=== PATIENT | female | born 1970 | race Caucasian/White ===

== ENCOUNTER 2017-08-01 13:58 | Observation (INO) | payer SELFPAY ==
[~2017-08-01] VITALS: Ht 154.9 cm; Wt 64.9 kg
[2017-08-01 14:56] LABS: BASOPHILS % 0.9 % (0.0-1.0); EOSINOPHILS # (AUTO) 0.2 (0.0-0.4); EOSINOPHILS % 3.2 % (0.0-6.0); HEMATOCRIT 23.6 % (34.2-44.1); LYMPHOCYTES # (AUTO) 1.2 (1.0-3.2); LYMPHOCYTES % 25.3 % (18.0-39.1); MEAN CORPUSCULAR HEMOGLOBIN 19.5 pg (28-32); MEAN CORPUSCULAR HGB CONC 28.8 g/dL (31-35); MEAN CORPUSCULAR VOLUME 67.6 fL (81-99); MONOCYTES # (AUTO) 0.5 (0.2-0.8); MONOCYTES % 10.6 % (4.4-11.3); NEUTROPHILS # (AUTO) 2.8 (2.1-6.9); NEUTROPHILS % 59.8 % (38.7-80.0); PLATELET COUNT 294 x10e3/uL (140-360); RED BLOOD COUNT 3.49 x10e6/uL (3.6-5.1); RED CELL DISTRIBUTION WIDTH 18.7 % (11.7-14.4)
[2017-08-01 15:01] LABS: HEMOGLOBIN 6.8 g/dL (12.0-16.0)
--- NOTE | 2017-08-01 15:06 | Diagnostic Imaging Report ---
History:Disorientation Comparison studies: None Technique: Axial images were obtained from the skull base to the vertex. Coronal and sagittal reconstructions obtained from the axial data. Findings: Scalp/skull: No abnormalities. No fractures, blastic or lytic lesions. Extra-axial spaces: No masses. No fluid collections. Brain sulci: Appropriate for age. Ventricles: Normal in size and configuration. No hydrocephalus. Parenchyma: No abnormal densities. No masses, hemorrhage, acute or chronic cortical vascular insults. Sellar/suprasellar region: No abnormalities Craniocervical junction: Patent foramen magnum. No Chiari one malformation. IMPRESSION: No abnormalities . Signed by: DR Pravin Posey M.D. on 08/01/2017 3:02 PM
[2017-08-01] MEDS ORDERED: SODIUM CHLORIDE 0.9% 250ML 250 ML IV ONE (15:15)
[2017-08-01 15:18] LABS: ALANINE AMINOTRANSFERASE 21 IU/L (0-55); ALBUMIN 3.7 g/dL (3.5-5.0); ALBUMIN/GLOBULIN RATIO 1.1 (0.8-2.0); ALKALINE PHOSPHATASE 62 IU/L (40-150); ANION GAP 11.4 mmol/L (8-16); BLOOD UREA NITROGEN 10 mg/dL (7-26); BUN/CREATININE RATIO 13 (6-25); CARBON DIOXIDE 25 mmol/L (22-29); CHLORIDE 108 mmol/L (98-107); CREATINE KINASE 536 IU/L (29-168); CREATININE, SERUM 0.76 mg/dL (0.57-1.11); EST GLOMERULAR FILTRATION RATE > 60 ML/MIN (60-); GLUCOSE 99 mg/dL (74-118); POTASSIUM 3.4 mmol/L (3.5-5.1); SODIUM 141 mmol/L (136-145)
[2017-08-01 15:37] LABS: THYROID STIMULATING HORMONE 0.615 uIU/mL (0.350-4.940)
[2017-08-01 15:44] LABS: ACETAMINOPHEN < 3 ug/mL (10-30); SALICYLATE < 5.0 mg/dL (0-30)
[2017-08-01] MEDS ORDERED: SODIUM CHLORIDE FLUSH 10 ML SYR INJ PRN (16:00)
--- OUTSIDE RECORDS SUMMARY | 2017-08-01 16:29 | XMS REPORT ---
Author Author [facility] Address Unknown Phone Unavailable Care Team Providers Care Litigation Assistant Name Role Phone KAMALA HODGES Unavailable Unavailable Problems This patient has no known problems. Allergies, Adverse Reactions, Alerts This patient has no known allergies or adverse reactions. Medications This patient has no known medications. Results Test Description Test Time Test Comments Text Results Atomic Results Result Comments CT BRAIN WO [place] [address] Patient Name: MIAN ROMO MR #: [id number] : 1970 Age/Sex: 46/F Req #: [id number] Adm Physician: Ordered by: GEORGES CABALLERO [employer] Report #: [id number] Location: ER Room/Bed: Procedure: [id number] CT/CT BRAIN WO Exam Date: 08/01/17 Exam Time: 1430 REPORT STATUS: Signed History:Disorientation Comparison studies: None Technique: Axial images were obtained from the skull base to the vertex. Coronal and sagittal reconstructions obtained from the axial data. Findings: Scalp/skull: No abnormalities. No fractures, blastic or lytic lesions. Extra-axial spaces: No masses. No fluid collections. Brain sulci: Appropriate for age. Ventricles: Normal in size and configuration. No hydrocephalus. Parenchyma: No abnormal densities. No masses, hemorrhage, acute or chronic cortical vascular insults. Sellar/ suprasellar region: No abnormalities Craniocervical junction: Patent foramen magnum. No Chiari one malformation. IMPRESSION: No abnormalities . Signed by: DR Pravin Posey M.D. on 08/01/2017 3:02 PM Dictated By: PRAVIN MACIAS MD 1502 Transcribed By: HERNAN on 08/01/17 1502 COPY TO: GEORGES CABALLERO NP
[2017-08-01 16:51] LABS: BILIRUBIN,URINE NEGATIVE (NEGATIVE); CLARITY,URINE CLEAR (CLEAR); COLOR,URINE YELLOW (YELLOW); KETONES,URINE NEGATIVE (NEGATIVE); LEUKOCYTE ESTERASE ,URINE NEGATIVE (NEGATIVE); NITRITE,URINE NEGATIVE (NEGATIVE); PROTEIN,URINE DIPSTICK NEGATIVE (NEGATIVE); URINE UROBILINOGEN 0.2 mg/dL (0.2 - 1)
[2017-08-01] MEDS ORDERED: PANTOPRAZOLE 40 MG 10ML VIAL IV STA (16:56)
[2017-08-01 17:04] LABS: AMPHETAMINES SCREEN,URINE NEGATIVE (NEGATIVE); BENZODIAZEPINES SCREEN,URINE NEGATIVE (NEGATIVE); PHENCYCLIDINE SCREEN,URINE NEGATIVE (NEGATIVE)
[2017-08-01 17:05] LABS: BACTERIA,URINE RARE /HPF; EPITHELIAL CELLS,URINE RARE /LPF; RBC,URINE 0-5 /HPF (0-5); WBC,URINE (MAN) 0-5 /HPF (0-5)
[2017-08-01 17:06] LABS: PREGNANCY TEST, URINE NEGATIVE (NEGATIVE)
[2017-08-01 17:30] VITALS: BP 135/78
[2017-08-01 17:34] LABS: % IRON SATURATION 3 % (15-50); IRON 17 ug/dL (50-170); TOTAL IRON BINDING CAPACITY 529 ug/dL (261-478); TRANSFERRIN 378 mg/dL (180-382)
[2017-08-01 18:39] VITALS: BP 135/78
[2017-08-01 20:10] VITALS: BP 129/69
[2017-08-01] MEDS ORDERED: SODIUM CHLORIDE 0.9% 250ML 250 ML ONE (23:11)
[2017-08-01] MEDS ORDERED: ACETAMINOPHEN 325 MG TAB PO PRN (23:45)
[2017-08-01] MEDS ORDERED: ACETAMINOPHEN 325 MG TAB PO ONE (23:45)
[2017-08-02] MEDS: LORAZEPAM 0.5 MG TAB PO PRN ×4 (00:13→20:03)
[2017-08-02 05:30] VITALS: BP 150/85
[2017-08-02 07:56] VITALS: BP 147/81
[2017-08-02 10:44] LABS: BASOPHILS % 0.6 % (0.0-1.0); EOSINOPHILS # (AUTO) 0.2 (0.0-0.4); EOSINOPHILS % 4.6 % (0.0-6.0); HEMATOCRIT 30.3 % (34.2-44.1); HEMOGLOBIN 9.1 g/dL (12.0-16.0); LYMPHOCYTES # (AUTO) 1.3 (1.0-3.2); LYMPHOCYTES % 25.5 % (18.0-39.1); MEAN CORPUSCULAR HEMOGLOBIN 21.9 pg (28-32); MEAN CORPUSCULAR VOLUME 72.8 fL (81-99); MONOCYTES # (AUTO) 0.5 (0.2-0.8); MONOCYTES % 9.3 % (4.4-11.3); NEUTROPHILS # (AUTO) 3.1 (2.1-6.9); NEUTROPHILS % 59.8 % (38.7-80.0); PLATELET COUNT 285 x10e3/uL (140-360); RED BLOOD COUNT 4.16 x10e6/uL (3.6-5.1); RED CELL DISTRIBUTION WIDTH 21.2 % (11.7-14.4)
[2017-08-02 12:01] VITALS: BP 141/83
[2017-08-02 15:31] VITALS: BP 169/79
[2017-08-02 20:00] VITALS: BP 159/85
[2017-08-03] VITALS: BP 135/65
[2017-08-03] MEDS: LORAZEPAM 0.5 MG TAB PO PRN ×3 (01:02→14:02)
[2017-08-03 02:39] VITALS: BP 159/85
[2017-08-03 04:00] VITALS: BP 170/84
[2017-08-03] MEDS ORDERED: IRON DEXTRAN INJ 50 MG in SODIUM CHLORIDE 0.9% 100 ML IV ONE (06:30)
[2017-08-03] MEDS ORDERED: FAMOTIDINE INJ 20 MG in SODIUM CHLORIDE 0.9% 50ML 50 ML IV ONE (06:30)
[2017-08-03] MEDS ORDERED: DEXAMETHASONE PHOS 10MG INJ 20 MG in SODIUM CHLORIDE 0.9% 50ML 50 ML IV ONE (06:30)
[2017-08-03] MEDS ORDERED: DIPHENHYDRAMINE HCL INJ 25 MG in SODIUM CHLORIDE 0.9% 50ML 50 ML IV ONE (06:30)
[2017-08-03 08:35] VITALS: BP 157/82
[2017-08-03] MEDS ORDERED: DIATRIZOATE MEGL/DIATRIZOA SOD 30 ML BTL PO ONE (08:44)
[2017-08-03] MEDS ORDERED: IRON DEXTRAN INJ 500 MG in SODIUM CHLORIDE 0.9% 500ML 500 ML IV PRN (09:00)
[2017-08-03 12:38] VITALS: BP 85/55
--- NOTE | 2017-08-03 13:02 | Diagnostic Imaging Report ---
PROCEDURE: CT ABDOMEN AND PELVIS WITH CONTRAST TECHNIQUE: The abdomen and pelvis were scanned utilizing a multidetector helical scanner from the diaphragm to the lesser trochanter after the IV administration of 100 cc of Isovue 370 and the oral administration of Gastroview. Coronal and sagittal multiplanar reformations were obtained. COMPARISON: None. INDICATIONS: ANEMIA FINDINGS: LOWER THORAX: Normal. HEPATOBILIARY: No focal hepatic lesions. No biliary ductal dilatation. Several hypodensities too small to characterize are present in the right lobe of the liver. SPLEEN: No splenomegaly. PANCREAS: No focal masses or ductal dilatation. ADRENALS: No adrenal nodules. KIDNEYS/URETERS: No hydronephrosis, stones, or solid mass lesions. PELVIC ORGANS/BLADDER: Unremarkable. PERITONEUM / RETROPERITONEUM: No free air or fluid. LYMPH NODES: No lymphadenopathy. VESSELS: Unremarkable. GI TRACT: No distention or wall thickening. Normal appendix. BONES AND SOFT TISSUES: Unremarkable. Degenerative changes of the lumbar spine. IMPRESSION: No acute abnormality of the abdomen and pelvis. Dictated by: Tino Blount M.D. on 08/03/2017 at 13:11 Electronically approved by: Tino Blount M.D. on 08/03/2017 at 13:11
--- NOTE | 2017-08-03 14:13 | Consultation ---
DATE OF CONSULTATION: August 02, 2017 Heydi Mejía is a 46-year-old female who has been referred to me for evaluation of anemia. No history of hematochezia, melena, hematuria, or hematemesis. However, the patient claims that she has excessive menstrual cycle. At the present time, she claims she has a menstrual cycle. The patient came because of profound anemia of 6.8. Subsequently, admitted for further evaluation and treatment. Toxicology report reveals the patient's urine to be positive for cocaine. So far, blood is reported negative. SOCIAL HISTORY: History of cocaine abuse. FAMILY HISTORY: Noncontributory. ALLERGIES: REPORTED NONE. MEDICATIONS: At this time are, lorazepam, normal saline. The patient also has had blood transfusion. REVIEW OF SYSTEMS HEENT: Normal. CARDIAC: Normal. RESPIRATORY: Normal. GI: Normal. : Excessive menstrual cycle. MUSCULOSKELETAL: Normal. SKIN AND BREASTS: Normal. NEUROENDOCRINE: Normal. PHYSICAL EXAMINATION GENERAL: Moderately built female with involuntary moments of both upper and lower extremities. However, the patient is alert enough to cooperate for both physical exam, as well as the interview. No adenopathy. HEART: Within normal limits. LUNGS: Clear. BREASTS: Deferred. ABDOMEN: Soft. There is no hepatosplenomegaly. RECTAL: Vaginal exams deferred. CENTRAL NERVOUS SYSTEM: Could not be done properly because of inability of the patient to cooperate with me. She has involuntary movements. The patient was hardly able to shut the TV off because of lack of coordination, bed confined. LAB INVESTIGATIONS: Of interest which has prompted this consultation shows a hemoglobin of 6.8, hematocrit 23.6, very low MCV of 67.6, low MCHC of 28.8. High RDW of 18.7. White count of 4700, platelets of 294,000. The patient was transfused to 9.1 g. Chemistry shows a sodium of 141, potassium 3.4, chloride 108, CO2 25, BUN 10, creatinine 0.7, bilirubin 1.1, SGOT 32, SGPT 21, alkaline phosphatase 62. CK is very high at 536. CK-MB is high at 8.7. Troponins, however, were reported normal at 0.001. Total protein 7, albumin 3.7, globulin 3.3. Vitamin B12 level low normal at 257. TSH 0.615. CT scan of the brain is the only thing which is available for review. This was reported essentially normal. IMPRESSION 1. Iron deficiency anemia. 2. Combined deficiency with B12, low normal. 3. Hypokalemia (3.4). 4. CK high at 536, possible rhabdomyolysis. 5. Cocaine screen is positive. 6. Urinary tract infection with some bacteria in the urine. PLAN, COMMENTS AND SUGGESTIONS: Suggest a thorough GI and workup. Infed and B12. Social service consultation is essential because of her cocaine abuse, as well as lack of insurance. I have spoken to her along with the nursing staff that she should go to the [facility], get a gold card so that she could be taken care of as she will require probably frequent hospitalizations, as well as a normal gram should be plotted with her weight and the hemoglobin to assess the need for the total number of IV Infed. Because of vaginal bleed, I would be very concerned if she has any underlying pathology. It should also be assessed in, however, not a medical emergency for the patient to stay here. The patient could be discharged when stable for her to go to the [facility] for proper followup and treatment. Job#: [id number] GELY
[2017-08-03 16:54] VITALS: BP 162/73
[2017-08-03] MEDS ORDERED: IOPAMIDOL 370 MG/ML 200 ML INFUS..BTL INJ ONE (22:54)
[2017-08-03] MEDS ORDERED: SODIUM CHLORIDE 0.9% 50ML 50 ML ONE (22:54)
== END 2017-08-03 20:10 | disposition home or self-care (01) ==
LOC: ER 13:58 → ERHOLD 16:26 → IMCU 17:04
DX: D50.9 Iron deficiency anemia, unspecified (principal); E53.8 Deficiency of other specified B group vitamins; F14.10 Cocaine abuse, uncomplicated; F17.210 Nicotine dependence, cigarettes, uncomplicated; F31.9 Bipolar disorder, unspecified; I10 Essential (primary) hypertension; E87.6 Hypokalemia; N39.0 Urinary tract infection, site not specified; N92.0 Excessive and frequent menstruation with regular cycle
CPT/HCPCS: 36430; P9016; 36415; 70450; 74177; 80053; 80307; 80320; 80329; 81001; 81025; 82270; 82550; 82553; 82607; 83540; 84443; 84466; 84484; 84702; 85025; 86850; 86900; 86920; 87086; 93005; 96374; 99284; G0378; J1100; J1200; J1750; J7040; J7050; Q9967